=== PATIENT | male | born 1975 | race African-American/Black ===

== ENCOUNTER 2018-05-29 07:16 | Emergency (ER) | payer MEDICAID ==
[~2018-05-29] VITALS: Ht 177.8 cm; Wt 85.0 kg
[2018-05-29] MEDS ORDERED: KETOROLAC 30MG/ML VIAL IM ONE (09:00)
[2018-05-29] MEDS ORDERED: METHOCARBAMOL 500MG TABLET PO ONE (09:00)
[2018-05-29 09:12] VITALS: BP 110/96
== END 2018-05-29 10:40 | disposition left against medical advice (07) ==
LOC: ER 07:29
DX: M79.605 Pain in left leg (principal)
CPT/HCPCS: 93971; 96372; 99284; J1885